=== PATIENT | female | born 1985 | race Two or more races ===

== ENCOUNTER 2016-09-26 20:37 | Emergency (ER) | payer OTHER ==
[~2016-09-26] VITALS: Ht 162.6 cm; Wt 52.2 kg
[2016-09-26 21:13] LABS: KETONES,URINE Negative (NEGATIVE); LEUKOCYTE ESTERASE ,URINE Negative (NEGATIVE); PH,URINE 5.5 (5.0-8.0)
[2016-09-26 21:14] LABS: ADD UA MICROSCOPIC YES
[2016-09-26 21:29] LABS: ADD URINE CULTURE NO; RBC,URINE 0-2 /HPF (0-2); WBC,URINE 0-2 /HPF (0-3)
[2016-09-26] MEDS ORDERED: ONDANSETRON 4 MG TAB.RAPDIS SL ONE (22:00)
[2016-09-26] MEDS ORDERED: HYDROCODONE/APAP 5/325MG 1 EACH TABLET PO ONE (22:00)
[2016-09-26] MEDS ORDERED: HYDROCODONE/APAP 5/325MG 1 EACH TABLET ONE (22:15)
[2016-09-26] MEDS ORDERED: ONDANSETRON 4 MG TAB.RAPDIS ONE (22:16)
[2016-09-27 01:07] VITALS: BP 107/72
== END 2016-09-27 01:08 | disposition home or self-care (01) ==
LOC: ER 20:41
DX: R10.2 Pelvic and perineal pain (principal); J45.909 Unspecified asthma, uncomplicated
CPT/HCPCS: 74176; 76856; 81001; 84703; 87086; 87210; 87491; 87591; 99285; A4606; Q0162; Z7610; 81000-TC; 87186-TC